=== PATIENT | male | born 1955 | race Caucasian/White ===

== ENCOUNTER 2018-07-05 17:02 | Emergency (ER) | payer OTHER ==
--- NOTE | 2018-07-05 17:36 | EDPHY ---
General Time Seen by Provider: 07/05/18 17:35 Narrative: CLINICAL IMPRESSION: Right Hand laceration ASSESSMENT/PLAN: Patient is a 63-year-old male with no significant medical history who presents for evaluation of right hand laceration sustained just prior to arrival. Patient is not toxic appearing, he is in no distress. Physical examination reveals 2 separate lacerations on the dorsal aspect of the right hand. There is no evidence of deep structure involvement, neurovascular compromise, foreign body, or bony involvement. The wound was not contaminated, tetanus status was already up-to-date. The wound was irrigated and then repaired as discussed in the procedure note, the patient tolerated this well. Wound care instructions discussed with patient. This is a work comp injury, he understands the importance of following up with workman's Comp. Sutures will need to be removed in approximately 7-10 days, he will either return to the emergency department or had this done by his work comp. Return precautions discussed- he will return for increased pain, signs of infection, fever, vomiting, if the wound opens or for any other concerns. Patient verbalizes understanding and are in agreement with plan. DIFFERENTIAL DIAGNOSIS: includes but not limited to laceration of tendon or vascular structure, underlying fracture, laceration with retained FB ED PROCEDURES: Laceration Repair Verbal consent obtained by patient. Risks discussed, including but not limited to infection, pain, retained foreign body, need for additional repair, poor cosmetic result, tendon damage, nerve damage, poor wound healing, vascular damage. Alternatives to repair discussed. [place] protocol used to establish correct patient, procedure, equipment, technical support internship, and site. Anesthesia obtained by local infiltration. Anesthetized with 1% lidocaine with epinephrine. Laceration location dorsal aspect of the right hand proximal to the MCP, length laceration 1. Is approximately 1.5 cm and is located more distally, laceration to his approximately 1 cm, depth 0.3 mm, Repair type simple, interrupted. Patient was prepped and draped in usual sterile fashion. Hemostasis achieved with direct pressure. Wound explored through full range of motion and entire depth of wound probed and visualized with gloved finger. No suspicion for nerve damage, tendon damage, underlying fracture, vascular damage, foreign body, or contamination. Area was cleansed with Shur-Clens and irrigated with sterile saline as per protocol. No foreign body or material removed. Repair method simple interrupted sutures, 5 0 Prolene. Laceration 1 located more distal required 5 simple sutures, laceration 2. Required 3 simple sutures. Well aligned, closely approximated. wound was dressed with antibiotic ointment and a dressing. Patient tolerated well with no immediate complications. Wound care: Clean and dry x 24 hours, gently clean with soap and water, cover with topical antibiotic ointment/bandage. Suture/Staple removal: 7-10 Days CHIEF COMPLAINT: Laceration HPI: Patient is a 63-year-old male with no significant medical history who presents to the emergency department complaining of 2 separate right hand lacerations sustained just prior to arrival. Patient works at a car shop, he was using a drill when he lost control causing it to hit the top of his hand. He reports it just glanced over the top of his hand, this was not a crush injury. He denies any hand pain. He denies any numbness or tingling of his digits. He denies any other injury. He is left handed, he is up-to-date on his tetanus status. PAST MEDICAL HISTORY: Denies Family history: Noncontributory Social History: Denies smoking or illicit drug use REVIEW OF SYSTEMS: All other systems negative Constitutional: No fever, no chills Musculoskeletal: No deformity, no joint pain Skin: Right hand laceration x2 Neurological: No sensory loss or weakness. PHYSICAL EXAM: General Appearance: Well-appearing, no acute distress. Neurological: Alert and oriented x 3 Skin: Warm, dry. No rashes. Two separate lacerations to the dorsal aspect of the right hand, proximal to the MCP joint. First laceration most distal is approximately 1.5 cm, superficial in nature. Second laceration is approximately 1 cm, superficial in nature. Upper Extremities: Intact distal pulses, Full range of motion intact, no tenderness, no ecchymosis or edema. The radial, ulnar and median nerves were all tested. Radial nerve: Patient is able to extend wrist and fingers of the local joints. Ulnar nerve: Patient is able to abduct all fingers. Median nerve patient is able to oppose thumb to pinky. Lower Extremities: Intact distal pulses, No edema, No tenderness, No cyanosis, full range of motion intact, No calf tenderness bilaterally. MEDICAL DECISION MAKING: Patient was seen independently. Secondary supervising physician at time of evaluation was Dr. Hoffman, she did not personally evaluate this patient. Diagnosis: Right hand laceration x2. New, requires workup Summary: See assessment and plan for summary of ED visit Clinical lab tests: Not applicable. Independent visualization of images, tracing, or specimens not applicable. Decision to obtain medical records or history from someone other than the patient: No. Review / Summarize previous medical records: No Discussed patient with another provider: Yes, Dr. Hoffman - History Smoking Status: Never smoked - Objective Vital Signs: Initial Vital Signs Temperature (C) 36.7 C 07/05/18 17:07 Heart Rate 104 H 07/05/18 17:07 Respiratory Rate 18 07/05/18 17:07 Blood Pressure 213/118 H 07/05/18 17:07 O2 Sat (%) 96 07/05/18 17:07 O2 Delivery Mode Room Air Allergies/Adverse Reactions: No Known Allergies Allergy (Unverified 07/05/18 17:07) Departure - Departure Disposition: Home, Routine, Self-Care Clinical Impression: Laceration Condition: Good Instructions: Laceration (ED) Additional Instructions: DISCHARGE INSTRUCTIONS FROM YOUR DOCTOR Thank you for visiting our emergency department today. Please keep in mind that discharge from the emergency department does not mean that there is nothing wrong - it simply means that we have not identified an emergency condition that requires further evaluation or treatment in the hospital. You should always plan to follow up with primary care for re-evaluation of your condition in the next 2-3 days. Keep wound clean and dry for 24 hours. Then remove dressing, clean at least twice daily or when soiled with soap and water, apply antibiotic ointment and dressing. Do not soak the wound while the stitches are in place. Anticipate suture removal in 7-10 days. For pain control: You may take Tylenol, I recommend 500-1000 mg every 6-8 hours as needed. Take with food and a full glass of water. Stop taking if this is upsetting her stomach. Do not exceed [3000/4000] mg in a 24 hr period. You may also take ibuprofen, recommend 400 mg every 6 hr. Take with food and a full glass of water. Stop taking if this upsets her stomach. Do not exceed 2400 mg in a 24 hr period. Schedule a follow-up visit with your primary care physician/work comp or the emergency department for suture removal in 7-10 days and sooner for wound check for any concerns. Return for signs of wound infection ie: redness, swelling, drainage, foul odor, red streaks, fever, chills, pain, bleeding, if the stitches pop, if the wound opens or for any other new, worsening or worrisome symptoms. People present with illnesses and injuries in different ways, and it is always possible that we have missed something. You may always return for re-evaluation if symptoms worsen or if they are not improving or if you develop new/different symptoms. Again, thank you for choosing our emergency department. We hope that you feel better. Referrals: NONE *PRIMARY CARE P,. [Primary Care Provider] - As per Instructions (Work Comp , schedule an appointment) Milagros Miller MD [Medical Doctor] - As per Instructions (Establish care if you do not have a primary care provider.)
[2018-07-05 18:40] VITALS: BP 178/86
== END 2018-07-05 18:38 | disposition home or self-care (01) ==
PROC: 0HQFXZZ Repair Right Hand Skin, External Approach (ICD-10-PCS; principal; 2018-07-05)
DX: S61.411A Laceration without foreign body of right hand, initial encounter (principal); W20.8XXA Other cause of strike by thrown, projected or falling object, initial encounter; Y92.513 Shop (commercial) as the place of occurrence of the external cause; Y93.89 Activity, other specified; Y99.0 Civilian activity done for income or pay